=== PATIENT | male | born 1970 | race Caucasian/White ===

== ENCOUNTER 2019-03-22 16:56 | Emergency (ER) | payer MEDICAID ==
[~2019-03-22] VITALS: Ht 185.4 cm; Wt 142.4 kg
[2019-03-22 17:17] VITALS: BP 141/89
--- NOTE | 2019-03-22 17:35 | NUR ---
48 Y/O M C/O COUGH X 1 DAY THAT IS NON-PRODUCTIVE, RUNNY NOSE. PT DENIES N/V, NO FEVER. PT LUNG SOUNDS CLEAR THROUGHOUT. PT POSITIONED FOR COMFORT. OXYGEN ROOM AIR, 97%
[2019-03-22] MEDS ORDERED: predniSONE 20 MG TAB PO ONE (18:00)
[2019-03-22] MEDS ORDERED: ALBUTEROL SULFATE/IPRATROPIU 3 ML SOL IH ONE (18:00)
--- NOTE | 2019-03-22 18:28 | NUR ---
RESPIRATORY AT BEDSIDE ADMINISTERING BREATHING TREATMENT.
--- NOTE | 2019-03-22 18:38 | NUR ---
PT STATED HE FEELS BETTER AFTER BREATHING TREATMENT BY RT, ABLE TO TAKE DEEPER BREATHS W/O DISCOMFORT.
[2019-03-22 18:39] VITALS: BP 125/80
--- NOTE | 2019-03-22 18:40 | NUR ---
Patient discharged with v/s stable. Written and verbal after care instructions given and explained. Patient alert, oriented and verbalized understanding of instructions. Ambulatory with steady gait. All questions addressed prior to discharge. ID band removed. Patient advised to follow up with PMD. Rx of PREDNISONE, PROMETHAZINE given. Patient educated on indication of medication including possible reaction and side effects. Opportunity to ask questions provided and answered.
== END 2019-03-22 18:40 | disposition home or self-care (01) ==
LOC: MED 16:56
DX: J45.909 Unspecified asthma, uncomplicated (principal)
CPT/HCPCS: 94640; 99283; J7512; J7620

== ENCOUNTER 2019-03-24 10:55 | Emergency (ER) | payer MEDICAID ==
[~2019-03-24] VITALS: Ht 180.3 cm; Wt 141.5 kg
[2019-03-24 11:04] VITALS: BP 149/108
--- NOTE | 2019-03-24 11:11 | NUR ---
FLU SWAB COLLECTED
[2019-03-24] MEDS ORDERED: ACETAMINOPHEN EXTRA STRENGTH 500 MG TAB PO ONE (11:15)
--- NOTE | 2019-03-24 11:17 | NUR ---
AMB TO BED 07
--- NOTE | 2019-03-24 11:24 | NUR ---
48 YO MALE CO FEVER THAT WILL NOT GET BETTER WITH MEDS. NO OTHER PEOPLE AT [facility] SICK AT THIS TIME. PY ALSO ADV THAT HE HAS BODY ACHES AND IS UNABLE TO HAVE A BM. HAS NOT HAD A BM SINCE 03/22/2019. PT HAS HX OF HTN AND HIGH CHOLESTEROL. PT TAKING HCTZ AND SIMVASTATIN AT HOME. PT STATES THAT HE HAS A HEADACHE OF 8/10. GAVE TYLENOL 1000MG PER MD.
--- NOTE | 2019-03-24 11:27 | NUR ---
Patient taken to XRAY via wheelchair by tech.
--- NOTE | 2019-03-24 11:35 | NUR ---
PT TAKEN TO RAD
[2019-03-24 11:44] VITALS: BP 149/108
[2019-03-24] MEDS ORDERED: NACL 0.9% 1,000 ML IV ONE ×2 (11:50→12:45)
--- NOTE | 2019-03-24 12:05 | NUR ---
LABS DRAWN AND TAKEN TO THE LAB
[2019-03-24 12:22] LABS: BASOPHILS % (AUTO) 0.2 % (0.0-2.0); EOSINOPHILS % (AUTO) 0.1 % (0.0-4.0); HEMATOCRIT 44.8 % (36-52); HEMOGLOBIN 14.9 g/dL (12.0-18.0); LYMPHOCYTES # (AUTO) 0.7 K/uL (2.0-11.5); LYMPHOCYTES % (AUTO) 12.1 % (20.5-51.1); MEAN CORPUSCULAR HEMOGLOBIN 30 pg (27-31); MEAN CORPUSCULAR HGB CONC 33 g/dL (33-37); MEAN CORPUSCULAR VOLUME 90.8 fL (80-94); MONOCYTES # (AUTO) 0.9 K/uL (0.8-1.0); MONOCYTES % (AUTO) 14.2 % (1.7-9.3); NEUTROPHILS # (AUTO) 4.5 K/uL (1.8-7.7); NEUTROPHILS % (AUTO) 73.4 % (42.2-75.2); PLATELET COUNT (AUTO) 176 K/uL (140-450); RED BLOOD CELL COUNT(AUTO) 4.93 MIL/uL (4.20-6.10); RED CELL DISTRIBUTION WIDTH 13.2 % (11.6-13.7); WHITE BLOOD COUNT (AUTO) 6.1 K/uL (4.8-10.8)
[2019-03-24] MEDS ORDERED: OSELTAMIVIR PHOSPHATE 75 MG CAP PO ONE (12:25)
[2019-03-24 12:33] LABS: ANION GAP 11.4 (8-16); CARBON DIOXIDE 30.3 mmol/L (21-32); CREATININE 1.1 mg/dL (0.7-1.3); POTASSIUM 3.7 mmol/L (3.5-5.1)
[2019-03-24 12:47] LABS: ALBUMIN 3.5 g/dL (3.4-5.0); TOTAL BILIRUBIN 0.6 mg/dL (0.0-1.0)
[2019-03-24] MEDS ORDERED: INSULIN REGULAR, HUMAN 100 UNIT/ML VIAL SUBQ ONE (12:50)
[2019-03-24] MEDS ORDERED: MORPHINE SULFATE 4 MG/ML SYR IVP ONE (13:30)
--- NOTE | 2019-03-24 13:43 | NUR ---
Lactic acid 2.4. communicated with
--- NOTE | 2019-03-24 13:43 | NUR ---
BS AT 1343 IS 226
--- NOTE | 2019-03-24 14:35 | NUR ---
IV removed, catheter intact and site benign. Applied folded 4x4 gauze and tape to stop bleeding.
--- NOTE | 2019-03-24 14:41 | NUR ---
Patient discharged with v/s stable. Written and verbal after care instructions given and explained. Patient alert, oriented and verbalized understanding of instructions. Ambulatory with steady gait. All questions addressed prior to discharge. ID band removed. Patient advised to follow up with PMD. Rx of TAMIFLU given. Patient educated on indication of medication including possible reaction and side effects. Opportunity to ask questions provided and answered. INSTRUCTED TO WAIT IN LOBBY FOR . PT VERBALIZED UNDERSTANDING
== END 2019-03-24 14:41 | disposition home or self-care (01) ==
LOC: MED 10:55
DX: J09.X2 Influenza due to identified novel influenza A virus with other respiratory manifestations (principal); R73.9 Hyperglycemia, unspecified; I10 Essential (primary) hypertension; E78.00 Pure hypercholesterolemia, unspecified; J45.909 Unspecified asthma, uncomplicated; Z86.73 Personal history of transient ischemic attack (TIA), and cerebral infarction without residual deficits; Z88.6 Allergy status to analgesic agent
CPT/HCPCS: 36415; 71046; 80053; 82948; 83605; 85025; 87040; 87804; 96372; 96374; 99284; J1815; J2270; J7030

== ENCOUNTER 2019-04-01 10:16 | Emergency (ER) | payer MEDICAID ==
[~2019-04-01] VITALS: Ht 210.8 cm; Wt 136.6 kg
[2019-04-01 10:46] VITALS: BP 140/85
--- NOTE | 2019-04-01 11:31 | NUR ---
48/M C/O UTI SYMPTOMS X 3 DAYS. STATES DYSURIA, URGENCY, SLOW WEAK STREAM. STATES HEMATURIA 3 DAYS AGO, NONE AT THIS TIME. PT HAS PROVIDED URINE SAMPLE ALREADY. HX- HTN, DM, HLD
--- NOTE | 2019-04-01 11:34 | NUR ---
DR URIBE EVALUATING PT AT BEDSIDE
[2019-04-01 12:15] LABS: BILIRUBIN,URINE NEGATIVE (NEGATIVE); BLOOD, URINE TRACE-L (NEGATIVE); COLOR,URINE YELLOW (YELLOW); LEUKOCYTE ESTERASE ,URINE TRACE (NEGATIVE); NITRITE, URINE NEGATIVE (NEGATIVE); PH,URINE 6.5 (5.0-9.0); UGLUCOSE 3+ (NEGATIVE)
--- NOTE | 2019-04-01 12:29 | NUR ---
ABBY WITH LAB STATED URINE IS CURRENTLY RUNNING ; COLLECTED AT [id number]
[2019-04-01 12:32] LABS: APPEARANCE,URINE SLIGHTLY HAZY (CLEAR)
[2019-04-01 12:45] LABS: URINE AMORPHOUS URATE 1+ /HPF (None Seen); YEAST,URINE Few /HPF (None Seen)
[2019-04-01 12:47] LABS: RBC,URINE 0-5 /HPF (0-5)
--- NOTE | 2019-04-01 13:44 | NUR ---
PT STATES DR URIBE WAS GOING TO COME BACK TO TALK TO HIM ABOUT DIABETES MED. NOTIFIED DR URIBE.
--- NOTE | 2019-04-01 13:47 | NUR ---
DR URIBE SPEAKING WITH PT AT BEDSIDE
--- NOTE | 2019-04-01 13:55 | NUR ---
Patient discharged with v/s stable. Written and verbal after care instructions given and explained. Patient alert, oriented and verbalized understanding of instructions. Ambulatory with steady gait. All questions addressed prior to discharge. ID band removed. Patient advised to follow up with PMD. Rx of CLOTRIMAZOLE CREAM given. Patient educated on indication of medication including possible reaction and side effects. Opportunity to ask questions provided and answered.
[2019-04-01 14:03] VITALS: BP 137/77
== END 2019-04-01 13:55 | disposition home or self-care (01) ==
LOC: MED 10:16
DX: N47.6 Balanoposthitis (principal); E11.9 Type 2 diabetes mellitus without complications
CPT/HCPCS: 81001; 87086; 99283

== ENCOUNTER 2019-05-07 08:31 | Inpatient (IN) | payer MEDICAID ==
[~2019-05-07] VITALS: Ht 195.6 cm; Wt 120.7 kg
[2019-05-07 08:43] VITALS: BP 158/101
--- NOTE | 2019-05-07 09:05 | NUR ---
48 Y/O MALE C/O BLURRED VISION, HEADACHE, CHANGE OF APPETITE, AND HAND TREMORS X 2 DAYS. DENIES N/V/D. STATES INTERMITTENT VISION CHANGES. PER PT HE DOES NOT WANT TO EAT. CURRENTLY TAKING METFORMIN. RR EVEN AND UNLABORED. SITTING UPRIGHT IN BED CALM AND PLEASANT. X 1 SIDE RAIL RAISED. AT BEDSIDE. MEDHX: HTN, DM ALLERGIES: DICLOFENAC
--- NOTE | 2019-05-07 09:42 | NUR ---
DR ANTHONY AT BEDSIDE EXAMINING PT
[2019-05-07] MEDS ORDERED: NACL 0.9% 2,000 ML IV ONE (09:50)
--- NOTE | 2019-05-07 10:10 | NUR ---
20G IV PLACED TO LT AC, LABS DRAWN AT THIS TIME. URINE COLLECTED.
[2019-05-07 10:29] LABS: BASOPHILS # (AUTO) 0.1 K/uL (0.00-0.22); BASOPHILS % (AUTO) 0.7 % (0.0-2.0); EOSINOPHILS # (AUTO) 0.1 K/uL (0-0.4); EOSINOPHILS % (AUTO) 0.7 % (0.0-4.0); HEMATOCRIT 54.6 % (36-52); HEMOGLOBIN 17.6 g/dL (12.0-18.0); LYMPHOCYTES # (AUTO) 1.7 K/uL (2.0-11.5); LYMPHOCYTES % (AUTO) 23.6 % (20.5-51.1); MEAN CORPUSCULAR HEMOGLOBIN 31 pg (27-31); MEAN CORPUSCULAR HGB CONC 32 g/dL (33-37); MEAN CORPUSCULAR VOLUME 96.2 fL (80-94); MONOCYTES # (AUTO) 0.5 K/uL (0.8-1.0); MONOCYTES % (AUTO) 6.5 % (1.7-9.3); NEUTROPHILS # (AUTO) 5.1 K/uL (1.8-7.7); NEUTROPHILS % (AUTO) 68.5 % (42.2-75.2); PLATELET COUNT (AUTO) 162 K/uL (140-450); RED BLOOD CELL COUNT(AUTO) 5.67 MIL/uL (4.20-6.10); RED CELL DISTRIBUTION WIDTH 14.2 % (11.6-13.7)
[2019-05-07 11:08] LABS: ALBUMIN 3.9 g/dL (3.4-5.0); ANION GAP 18.8 (8-16); CARBON DIOXIDE 29.9 mmol/L (21-32); CREATININE 1.5 mg/dL (0.6-1.3); POTASSIUM 3.7 mmol/L (3.5-5.1); TOTAL BILIRUBIN 0.7 mg/dL (0.0-1.0)
[2019-05-07 11:11] LABS: WHITE BLOOD COUNT (AUTO) 7.4 K/uL (4.8-10.8)
[2019-05-07 11:16] LABS: APPEARANCE,URINE CLEAR (CLEAR); BILIRUBIN,URINE NEGATIVE (NEGATIVE); BLOOD, URINE NEGATIVE (NEGATIVE); COLOR,URINE YELLOW (YELLOW); LEUKOCYTE ESTERASE ,URINE NEGATIVE (NEGATIVE); NITRITE, URINE NEGATIVE (NEGATIVE); PH,URINE 5.5 (5.0-9.0); UGLUCOSE 3+ (NEGATIVE)
[2019-05-07] MEDS ORDERED: INSULIN REGULAR, HUMAN 100 UNIT/ML VIAL SUBQ ONE (11:30)
[2019-05-07 11:33] LABS: RBC,URINE 0-5 /HPF (0-5); WBC,URINE 0-5 /HPF (0-5)
--- NOTE | 2019-05-07 11:51 | NUR ---
PT RESTING IN BED IN POSITION OF COMFORT, BED LOW AND LOCKED, SIDERAILS UP. AT BEDSIDE.
[2019-05-07] MEDS ORDERED: NACL 0.45% 1,000 ML IV ONE (12:20)
[2019-05-07] MEDS ORDERED: LOSA25TA43 PO (12:34)
[2019-05-07] MEDS ORDERED: METF500T2 PO (12:34)
[2019-05-07] MEDS ORDERED: SIMV20TA1 PO (12:34)
[2019-05-07] MEDS ORDERED: VITD400 PO (12:34)
[2019-05-07] MEDS ORDERED: ORE25 PO (12:34)
[2019-05-07] MEDS ORDERED: NACL 0.9% 1,000 ML IV SCH (12:37)
--- NOTE | 2019-05-07 12:39 | NUR ---
PT AMBULATED TO RESTROOM AND BACK TO BED 7 WITH STEADY GAIT. BED LOW AND LOCKED, 2 SIDERAILS UP, PT IN POSITION OF COMFORT. WILL CONTINUE TO MONITOR.
[2019-05-07] MEDS ORDERED: ONDANSETRON 4 MG/2 ML VIAL IVP PRN (12:40)
[2019-05-07] MEDS ORDERED: DEXTROSE 50% 50 ML SYR IVP PRN (12:40)
[2019-05-07] MEDS ORDERED: HYDROcodone/APAP 7.5/325 MG 1 TAB PO PRN (12:40)
[2019-05-07] MEDS ORDERED: ACETAMINOPHEN 325 MG TAB PO PRN (12:40)
--- NOTE | 2019-05-07 13:24 | NUR ---
ABG DONE PRESSURE APPLIED AT PUNCTURE SITE NO EVIDENCE OF HEMATOMA
[2019-05-07 13:32] LABS: FREE T4 (FREE THYROXINE) 0.91 ng/dL (0.76-1.46); MAGNESIUM 2.6 mg/dL (1.8-2.4); PHOSPHORUS 6.1 mg/dL (2.5-4.9); THYROID STIMULATING HORMONE 0.39 uIU/mL (0.34-3.74)
--- NOTE | 2019-05-07 13:33 | NUR ---
CALLED DR. PARRISH [phone] TO REVIEW ABG SAMPLE REPORT FOREMENTIONED NOT AVAILABLE IN SURGERY REVIEWED ABG SAMPL REPORT WITH DR. AKILAH GEORGES
[2019-05-07 13:39] LABS: PROTHROMBIN TIME 10.5 secs (10.8-13.4)
--- NOTE | 2019-05-07 14:49 | NUR ---
PT RESTING IN BED IN POSITION OF COMFORT. SIDERAILS UP, BED LOW AND LOCKED. WILL COTINUE TO MONITOR
--- NOTE | 2019-05-07 15:45 | NUR ---
PT BEING TRANSFERRED VIA WHEELCHAIR WITH 2 RN'S TO ROOM 11A FOR ADMISSION
--- NOTE | 2019-05-07 15:45 | NUR ---
PT ADMITTED AT THIS TIME FROM ER, COMING FROM HOME. C/C BLURRED VISION DUE TO UNCONTROLLED DIABETES. PT AAOX4 AMBULATORY, NO DISTRESS NOTED, DENIES PAIN. RESPIRATIONS EVEN AND UNLABORED ON ROOM AIR. IV IN PLACE IN L AC 22G PATENT AND ASYMPTOMATIC INFUSING PER ORDER. SKIN INTACT. INITIAL ASSESSMENT DONE, EDUCATION GIVEN AND PAPERWORK FILLED IN. SAFETY MEASURES IN PLACE. CALL LIGHT WITHIN REACH, SAFETY MEASURES IN PLACE. WILL CONTINUE TO MONITOR.
--- NOTE | 2019-05-07 15:48 | NUR ---
PT IN BED AWAKE WATCHING TV, NO DISTRESS NOTED. SAFETY MEASURES IN PLACE. CALL LIGHT WITHIN REACH, BED IN LOW POSITION. WILL CONTINUE TO MONITOR.
--- NOTE | 2019-05-07 15:53 | NUR ---
Pt report given to BRENT DAVENPORT. Transfer of care at this time . Pt admitted to bed 111A
[2019-05-07] MEDS: BLOOD GLUCOSE MONITORING 1 DEV DEV FS SCH ×2 (17:04→21:09)
[2019-05-07] MEDS: INSULIN LISPRO SLIDING SCALE 100 UNITS/ML VIAL SUBQ PRN ×2 (18:01→21:09)
--- NOTE | 2019-05-07 19:03 | NUR ---
PT ENDORSED TO NIGHT NURSE FOR CONTINUITY OF CARE.
--- NOTE | 2019-05-07 19:04 | NUR ---
REPORT RECEIVED FROM AM NURSE AT BEDSIDE. PT IN STABLE CONDITION. AAOX4. INTRODUCED SELF TO PT. BOARD UPDATED. NO COMPLAINTS OF PAIN. NO SOB. AFEBRILE. PT IS AMBULATORY. IV SITE L AC 20G RUNNING NS@100ML/HR PATENT AND INTACT. SKIN WARM, DRY, AND INTACT WITH NO OPEN WOUNDS. BED LOCKED IN LOW POSITION. CALL DRISCOLL WITHIN REACH. SAFETY PRECAUTION IN PLACE. ALL NEEDS MET AT THIS TIME.
[2019-05-07] MEDS ORDERED: MECLIZINE 25 MG TAB PO PRN (19:40)
[2019-05-07] MEDS ORDERED: NON-FORMULARY ITEM (Metformin HCl* (Glucophage Xr*) 1 TAB) PO SCH (21:00)
[2019-05-07] MEDS: DOCUSATE SODIUM 100 MG GELCAP PO SCH (21:04)
[2019-05-07] MEDS: SIMVASTATIN 20 MG TAB PO SCH (21:04)
--- NOTE | 2019-05-07 21:04 | NUR ---
HEPARIN GIVEN SUBQ. ZOCOR AND DOCUSATE GIVEN PO. BS 326. 8 UNITS OF HUMALOG GIVEN. PT TOLERATED WELL.
[2019-05-07 22:25] LABS: ANION GAP 11.4 (8-16); CARBON DIOXIDE 30.4 mmol/L (21-32); CREATININE 1.1 mg/dL (0.6-1.3); POTASSIUM 3.8 mmol/L (3.5-5.1)
[2019-05-07] MEDS ORDERED: metFORMIN 500 MG TAB PO SCH (23:15)
--- NOTE | 2019-05-07 23:30 | NUR ---
PHARMACY CALLED FOR VERIFICATION OF MEDICATION. MD MADE AWARE. MD WILL MAKE CHANGES.
--- NOTE | 2019-05-07 23:40 | NUR ---
METFORMIN GIVEN PO. PT TOLERATED WELL.
[2019-05-08] VITALS: BP 143/77
[2019-05-08 00:03] LABS: BARBITURATE, URINE NEGATIVE ng/ml (NEG <=200); BENZODIAZEPINE, URINE NEGATIVE ng/mL (NEG <=200); CANNABINOID, URINE NEGATIVE ng/mL (NEG <=50); COCAINE, URINE NEGATIVE ng/mL (NEG <=300); OPIATE, URINE NEGATIVE ng/mL (NEG <=2000); PHENCYCLIDINE SCREEN,URINE NEGATIVE ng/mL (NEG <=25)
[2019-05-08] MEDS ORDERED: NACL 0.9% 1,000 ML IV SCH (00:37)
--- NOTE | 2019-05-08 01:30 | NUR ---
PT SLEEPING COMFORTABLY BUT AROUSABLE. NO S/S OF DISTRESS NOTED. WILL CONTINUE TO MONITOR.
--- NOTE | 2019-05-08 03:10 | NUR ---
PT SLEEPING COMFORTABLY BUT AROUSABLE. NO S/S OF DISTRESS NOTED. NO COMPLAINTS OF PAIN. NO SOB. AFEBRILE. WILL CONTINUE TO MONITOR.
--- NOTE | 2019-05-08 04:45 | NUR ---
PT SLEEPING COMFORTABLY BUT AROUSABLE. RESPIRATIONS EVEN, UNLABORED, AND WNL. WILL CONTINUE TO MONITOR.
[2019-05-08] MEDS: BLOOD GLUCOSE MONITORING 1 DEV DEV FS SCH ×4 (05:57→21:51)
[2019-05-08] MEDS: NACL 0.45% 1,000 ML IV SCH ×2 (06:15→19:45)
[2019-05-08] MEDS: INSULIN LISPRO SLIDING SCALE 100 UNITS/ML VIAL SUBQ PRN ×4 (06:20→21:50)
--- NOTE | 2019-05-08 06:20 | NUR ---
BS 300. 6 UNITS OF HUMALOG GIVEN. PT TOLERATED WELL.
--- NOTE | 2019-05-08 06:45 | NUR ---
PT AWAKE AND ALERT. PT IN STABLE CONDITION.
[2019-05-08 07:18] LABS: ANION GAP 12.6 (8-16); CARBON DIOXIDE 31.8 mmol/L (21-32); POTASSIUM 4.4 mmol/L (3.5-5.1)
[2019-05-08 07:20] LABS: BASOPHILS # (AUTO) 0.1 K/uL (0.00-0.22); EOSINOPHILS # (AUTO) 0.2 K/uL (0-0.4); EOSINOPHILS % (AUTO) 3.6 % (0.0-4.0); HEMATOCRIT 48.1 % (36-52); HEMOGLOBIN 15.7 g/dL (12.0-18.0); LYMPHOCYTES # (AUTO) 1.9 K/uL (2.0-11.5); LYMPHOCYTES % (AUTO) 36.9 % (20.5-51.1); MEAN CORPUSCULAR HEMOGLOBIN 31 pg (27-31); MEAN CORPUSCULAR HGB CONC 33 g/dL (33-37); MEAN CORPUSCULAR VOLUME 95.1 fL (80-94); MONOCYTES # (AUTO) 0.3 K/uL (0.8-1.0); MONOCYTES % (AUTO) 6.9 % (1.7-9.3); NEUTROPHILS # (AUTO) 2.6 K/uL (1.8-7.7); NEUTROPHILS % (AUTO) 51.6 % (42.2-75.2); PLATELET COUNT (AUTO) 124 K/uL (140-450); RED BLOOD CELL COUNT(AUTO) 5.06 MIL/uL (4.20-6.10); RED CELL DISTRIBUTION WIDTH 14.1 % (11.6-13.7)
--- NOTE | 2019-05-08 07:30 | NUR ---
Received report from pm nurse Delacruz. Pt sitting up in bed, awake, verbally responsive, no signs of distress. Left AC IV intact & asymptomatic. Call light within reach.
[2019-05-08 07:40] LABS: CHOL/HDL RATIO 6.8 (1-4.5); MAGNESIUM 2.3 mg/dL (1.8-2.4); PHOSPHORUS 3.9 mg/dL (2.5-4.9)
[2019-05-08 08:00] VITALS: BP_SYST 125; BP_SYST 126; BP_SYST 128; BP_DIAS 62; BP_DIAS 68; BP_DIAS 75
[2019-05-08] MEDS ORDERED: metFORMIN 500 MG TAB PO SCH (08:00)
--- NOTE | 2019-05-08 08:29 | NUR ---
PATIENT HAS BEEN SCREENED AND CATEGORIZED HIGH NUTRITION RISK. PATIENT WILL BE SEEN WITHIN 1-2 DAYS OF ADMISSION. 05/08/19-05/09/[address]
[2019-05-08] MEDS: DOCUSATE SODIUM 100 MG GELCAP PO SCH ×2 (08:54→21:25)
[2019-05-08] MEDS: LOSARTAN 25 MG TAB PO SCH (08:54)
[2019-05-08] MEDS ORDERED: INSULIN NPH HUM/REG INSULIN HM 100 UNIT/ML 10 ML VIAL SUBQ SCH (09:00)
--- NOTE | 2019-05-08 09:30 | NUR ---
Pt requested to go to [facility] to get phone equipment washer from his car. Held IVF and disconnected from IV line. Vandana (security) notified and escorted pt to [facility]. Pt ambulated with steady gait and came back to room 111A and resumed IVF 1/2NS @ 50ml/h.
[2019-05-08 15:33] LABS: ANION GAP 12.5 (8-16); CARBON DIOXIDE 29.4 mmol/L (21-32); POTASSIUM 3.9 mmol/L (3.5-5.1)
[2019-05-08 16:00] VITALS: BP_SYST 125; BP_DIAS 68; BP_DIAS 81
--- NOTE | 2019-05-08 16:01 | NUR ---
05/08/19 RD INITIAL ASSESSMENT COMPLETED PLEASE REFER TO NUTRITION ASSESSMENT UNDER CARE ACTIVITY FOR ESTIMATED NUTRITIONAL NEEDS. 1. [facility]OMM[facility]IAC, [facility] DIET. 2. DM NUTRITION EDUCATION WAS PROVIDED 3. RD TO FOLLOW-UP 5-7 DAYS, LOW RISK [address]IJ[address], RD
--- NOTE | 2019-05-08 19:22 | NUR ---
RECIEVED PT. AAOX4 , NID , IV SITE INTACT AND PATENT . POC DISCUSSED AND VERBALIZE UNDERSTANDING . SAFETY MEASURE IN PLACE . CALL LIGHT WITHIN REACH . WILL CONT. TO MONITOR.
[2019-05-08] MEDS: INSULIN NPH HUM/REG INSULIN HM 100 UNIT/ML 10 ML VIAL SUBQ SCH (21:21)
[2019-05-08] MEDS: SIMVASTATIN 20 MG TAB PO SCH (21:25)
--- NOTE | 2019-05-08 22:00 | NUR ---
HOLD HEPARIN ORDERED BY ONELIA - PLT 124.
[2019-05-08] MEDS ORDERED: INSULIN LANTUS 100 UNITS/ML 10 ML VIAL SUBQ ONE (22:45)
[2019-05-08] MEDS ORDERED: INSULIN LANTUS 100 UNITS/ML 10 ML VIAL SUBQ SCH (23:30)
--- NOTE | 2019-05-08 23:51 | NUR ---
LANTUS 10 "U" SQ GIVEN STAT ORDERED - HGT 257 - MIDNIGHT SNACK PROVIDED. WILL CONT. TO MONITOR.
[2019-05-09] VITALS: BP 128/70
--- NOTE | 2019-05-09 02:00 | NUR ---
MADE ROUNDS , NO COMPLAIN MADE , VODED FREELY. WILL CONT. TO MONITOR
--- NOTE | 2019-05-09 03:46 | NUR ---
MADE ROUNDS , NOT IN ACUTE DISTRESS , WILL CONT. TO MONITOR.
--- NOTE | 2019-05-09 05:44 | NUR ---
MADE ROUNDS . SITTING ON THE BED , NO COMPLAIN MADE .WILL CONT. TO MONITOR.
[2019-05-09] MEDS: BLOOD GLUCOSE MONITORING 1 DEV DEV FS SCH ×4 (05:49→21:00)
[2019-05-09] MEDS: INSULIN LISPRO SLIDING SCALE 100 UNITS/ML VIAL SUBQ PRN ×4 (05:51→21:09)
[2019-05-09] MEDS ORDERED: MAGNESIUM CITRATE 300 ML BTL PO ONE (06:40)
[2019-05-09 07:07] LABS: BASOPHILS % (AUTO) 0.4 % (0.0-2.0); EOSINOPHILS # (AUTO) 0.1 K/uL (0-0.4); EOSINOPHILS % (AUTO) 4.4 % (0.0-4.0); HEMATOCRIT 46.3 % (36-52); HEMOGLOBIN 15.1 g/dL (12.0-18.0); LYMPHOCYTES # (AUTO) 1.7 K/uL (2.0-11.5); LYMPHOCYTES % (AUTO) 51.5 % (20.5-51.1); MEAN CORPUSCULAR HEMOGLOBIN 30 pg (27-31); MEAN CORPUSCULAR HGB CONC 33 g/dL (33-37); MEAN CORPUSCULAR VOLUME 93.4 fL (80-94); MONOCYTES # (AUTO) 0.2 K/uL (0.8-1.0); MONOCYTES % (AUTO) 5.6 % (1.7-9.3); NEUTROPHILS # (AUTO) 1.3 K/uL (1.8-7.7); NEUTROPHILS % (AUTO) 38.1 % (42.2-75.2); PLATELET COUNT (AUTO) 110 K/uL (140-450); RED BLOOD CELL COUNT(AUTO) 4.95 MIL/uL (4.20-6.10); RED CELL DISTRIBUTION WIDTH 13.5 % (11.6-13.7); WHITE BLOOD COUNT (AUTO) 3.4 K/uL (4.8-10.8)
--- NOTE | 2019-05-09 07:10 | NUR ---
RECEIVED BEDSIDE REPORT FROM ISSAC MYERS. PATIENT IN BED, AWAKE, ALERT AND ORIENTED X4. DENIES ANY PAIN OR DISCOMFORT. IV INTACT AND PATENT TO LAC. PLANS OF CARE DISCUSSED. CALL LIGHT WITHIN REACH. SAFETY MEASURES IN PLACE.
[2019-05-09 07:32] LABS: ANION GAP 12.4 (8-16); CARBON DIOXIDE 29.4 mmol/L (21-32); CREATININE 0.9 mg/dL (0.6-1.3); POTASSIUM 3.8 mmol/L (3.5-5.1)
[2019-05-09 07:34] LABS: MAGNESIUM 2.1 mg/dL (1.8-2.4); PHOSPHORUS 4.1 mg/dL (2.5-4.9)
[2019-05-09 08:00] VITALS: BP 146/89
[2019-05-09] MEDS ORDERED: INSULIN LANTUS 100 UNITS/ML 10 ML VIAL SUBQ SCH (09:00)
[2019-05-09] MEDS: INSULIN NPH HUM/REG INSULIN HM 100 UNIT/ML 10 ML VIAL SUBQ SCH ×2 (09:09→21:12)
[2019-05-09] MEDS: DOCUSATE SODIUM 100 MG GELCAP PO SCH ×2 (09:10→20:57)
[2019-05-09] MEDS: LOSARTAN 25 MG TAB PO SCH (09:10)
[2019-05-09] MEDS ORDERED: MAGNESIUM CITRATE 300 ML BTL PO SCH (09:15)
--- NOTE | 2019-05-09 09:15 | NUR ---
PT STATED HE HAS NOT HAD BOWEL MOVEMENT FOR 3 DAYS. MAGNESIUM CITRATE GIVEN ORDERED. PATIENT REMAINS STABLE. NO DISTRESS NOTED.
--- NOTE | 2019-05-09 11:30 | NUR ---
PATIENT REMAINS STABLE. AAOX4. ABLE TO MAKE NEEDS KNOWN. PATIENT SITTING ON THE SIDE OF THE BED, AT BEDSIDE. NO DISTRESS NOTED.
--- NOTE | 2019-05-09 13:00 | NUR ---
PATIENT ABLE TO AMBULATE WITH STEADY GAIT. PATIENT REQUESTED TO SHOWER. PATIENT ABLE TO SHOWER INDEPENDENTLY. WILL MONITOR.
--- NOTE | 2019-05-09 15:30 | NUR ---
PATIENT AMBULATED TO THE RESTROOM. NO DISTRESS NOTED.
[2019-05-09 16:00] VITALS: BP 113/51
--- NOTE | 2019-05-09 17:45 | NUR ---
PATIENT SITTING ON THE SIDE OF THE BED EATING DINNER. NO S/S OF DISTRESS NOTED. PT AAOX4. ABLE TO MAKE NEEDS KNOWN. CALL LIGHT WITHIN REACH.
[2019-05-09] MEDS ORDERED: LANC-947 TP (18:01)
[2019-05-09] MEDS ORDERED: HUMSLIDE SUBQ (18:01)
[2019-05-09] MEDS ORDERED: ASPI-1173 PO (18:01)
[2019-05-09] MEDS ORDERED: GLUC-805 FS (18:01)
[2019-05-09] MEDS ORDERED: INSU-800 MC (18:01)
[2019-05-09] MEDS ORDERED: DOCU-299 PO (18:01)
[2019-05-09] MEDS: NACL 0.45% 1,000 ML IV SCH (18:35)
--- NOTE | 2019-05-09 18:47 | NUR ---
PATIENT IN STABLE CONDITION. WILL ENDORSE TO NIGHT NURSE FOR CONTINUITY OF CARE.
--- NOTE | 2019-05-09 19:20 | NUR ---
RECEIVED PT IN STABLE CONDITION FROM AM NURSE. MED SURG PT. WITH NO C/O ANY PAIN NOTED. IVF INFUSING WELL ON THE LT AC G#20. CLEAR AND PATENT. PLAN OF CARE DISCUSSED AND VERBALIZED UNDERSTANDING. FREQ ROUNDS NEEDED. BED ON LOW POSITION. SIDE RAILS UP X2, CALL LIGHT WITHIN EASY REACH. WILL CONTINUE TO MONITOR.
[2019-05-09] MEDS: SIMVASTATIN 20 MG TAB PO SCH (20:58)
--- NOTE | 2019-05-09 21:09 | NUR ---
BLOOD SUGAR WAS CHECKED RESULT 256. INSULIN COVERAGE GIVEN SUBQ. PROVIDE SOME MSNACK. WILL CONTINUE TO MONITOR.
[2019-05-10] VITALS: BP 119/73
--- NOTE | 2019-05-10 | NUR ---
PT AWAKE. NO C/O ANY DISCOMFORT NOTED. WILL CONTINUE TO MONITOR.
--- NOTE | 2019-05-10 02:00 | NUR ---
MADE ROUNDS. SLEEPING WELL. NO S/S OF ANY DISCOMFORT NOTED.
--- NOTE | 2019-05-10 05:00 | NUR ---
SLEEPING. NO S/S OF ANY DISCOMFORT NOTED
[2019-05-10] MEDS: BLOOD GLUCOSE MONITORING 1 DEV DEV FS SCH ×2 (05:55→12:13)
[2019-05-10] MEDS: INSULIN LISPRO SLIDING SCALE 100 UNITS/ML VIAL SUBQ PRN ×2 (05:59→12:22)
--- NOTE | 2019-05-10 06:15 | NUR ---
IV ACCESS ON THE LT AC G20 LEAKING. DISCONTINUED. STARTED A NEW IV SITE ON LT WRIST G#22.
[2019-05-10 06:44] LABS: BASOPHILS % (AUTO) 0.6 % (0.0-2.0); EOSINOPHILS # (AUTO) 0.1 K/uL (0-0.4); EOSINOPHILS % (AUTO) 3.5 % (0.0-4.0); HEMATOCRIT 44.5 % (36-52); HEMOGLOBIN 14.9 g/dL (12.0-18.0); LYMPHOCYTES # (AUTO) 1.6 K/uL (2.0-11.5); MEAN CORPUSCULAR HEMOGLOBIN 31 pg (27-31); MEAN CORPUSCULAR HGB CONC 34 g/dL (33-37); MEAN CORPUSCULAR VOLUME 91.7 fL (80-94); MONOCYTES # (AUTO) 0.2 K/uL (0.8-1.0); NEUTROPHILS # (AUTO) 0.7 K/uL (1.8-7.7); NEUTROPHILS % (AUTO) 26.9 % (42.2-75.2); PLATELET COUNT (AUTO) 99 K/uL (140-450); RED BLOOD CELL COUNT(AUTO) 4.85 MIL/uL (4.20-6.10); RED CELL DISTRIBUTION WIDTH 13.3 % (11.6-13.7); WHITE BLOOD COUNT (AUTO) 2.6 K/uL (4.8-10.8)
[2019-05-10 06:56] LABS: PHOSPHORUS 3.5 mg/dL (2.5-4.9)
--- NOTE | 2019-05-10 07:05 | NUR ---
RECEIVED REPORT FROM NIGHT NURSE. PT IN STABLE CONDITION, SITTING ON THE BED, NO DISTRESS NOTED, DENIES PAIN. IV IN PLACE PATENT AND ASYMPTOMATIC IN L WRIST 22G INFUSING PER ORDER. RESPIRATIONS EVEN AND UNLABORED ON ROOM AIR. SKIN INTACT, AMBULATORY. SAFETY MEASURES IN PLACE, CALL LIGHT WITHIN REACH, BED IN LOW POSITION. WILL CONTINUE TO MONITOR.
[2019-05-10 07:10] LABS: ANION GAP 11.3 (8-16); CARBON DIOXIDE 28.4 mmol/L (21-32); CREATININE 0.7 mg/dL (0.6-1.3); POTASSIUM 3.7 mmol/L (3.5-5.1)
--- NOTE | 2019-05-10 07:10 | NUR ---
ENDORSED PT IN STABLE CONDITION TO AM NURSE.
[2019-05-10] MEDS ORDERED: metFORMIN 500 MG TAB PO SCH (08:00)
[2019-05-10] MEDS ORDERED: INSULIN LANTUS 100 UNITS/ML 10 ML VIAL SUBQ SCH (09:00)
[2019-05-10] MEDS ORDERED: ECOTRIN 81 MG TABEC PO SCH (09:00)
[2019-05-10] MEDS: LOSARTAN 25 MG TAB PO SCH (09:03)
[2019-05-10] MEDS: DOCUSATE SODIUM 100 MG GELCAP PO SCH (09:03)
[2019-05-10] MEDS ORDERED: LANTUS SUBQ (09:06)
[2019-05-10] MEDS: INSULIN NPH HUM/REG INSULIN HM 100 UNIT/ML 10 ML VIAL SUBQ SCH (09:06)
--- NOTE | 2019-05-10 09:12 | NUR ---
PT SITTING IN BED, AT THE BEDSIDE. MEDICATIONS ADMINISTERED PER ORDER. PT TOLERATED WELL, NO DISTRESS NOTED. PT STATES HIS VISION HAS NOT IMPROVED. SAFETY MEASURES IN PLACE, CALL LIGHT WITHIN REACH, WILL CONTINUE TO MONITOR.
[2019-05-10] MEDS ORDERED: [UNRECOGNIZED DRUG - CODE] PO (10:33)
[2019-05-10] MEDS ORDERED: LISI-420 PO (10:33)
[2019-05-10] MEDS ORDERED: BLOO1EAC40 MC (10:52)
--- NOTE | 2019-05-10 11:48 | NUR ---
BLOOD GLUCOSE CHECKED AT THIS TIME, WILL GIVE COVERAGE NEEDED PER SLIDING SCALE. PT IN NO DISTRESS. WILL CONTINUE TO MONITOR.
[2019-05-10 12:35] VITALS: BP 112/81
[2019-05-10 13:23] VITALS: BP 112/81
--- NOTE | 2019-05-10 14:00 | NUR ---
PT TO BE DISCHARGED HOME AT THIS TIME. DISCHARGE, MEDICATION AND FOLLOWUP EDUCATION GIVEN TO PT AND , PT VERBALIZED UNDERSTANDING. DISCHARGE PAPERWORK SIGNED BY PT. DEMO FOR SUBQ INSULIN INJECTIONS GIVEN, PT DEMONSTRATED DEMO. FLU VACCINE UP TO DATE AND PNA VACCINE REFUSED. IV SITE REMOVED WITH MINIMAL BLOOD LOSS AND LUMEN INTACT. ID BANDS REMOVED. BELONGINGS VERIFIED AND RETURNED TO PT. PT IN STABLE CONDITION UPON DISCHARGE. PT ESCORTED ON FOOT ACCOMPANIED BY AND LEFT IN PRIVATE VEHICLE.
[2019-05-12] MEDS ORDERED: ERGOCALCIFEROL 50,000 IU SGL PO SCH (09:00)
== END 2019-05-10 14:25 | disposition home or self-care (01) | DRG 469 ==
LOC: MED 08:31 → MTU 12:49
PROVIDERS: ADMIT General Practice; ATTEND General Practice
DX: N17.0 Acute kidney failure with tubular necrosis (principal); E11.00 Type 2 diabetes mellitus with hyperosmolarity without nonketotic hyperglycemic-hyperosmolar coma (NKHHC); E11.40 Type 2 diabetes mellitus with diabetic neuropathy, unspecified; D69.6 Thrombocytopenia, unspecified; G60.8 Other hereditary and idiopathic neuropathies; E87.1 Hypo-osmolality and hyponatremia; E11.319 Type 2 diabetes mellitus with unspecified diabetic retinopathy without macular edema; E86.0 Dehydration; Z88.8 Allergy status to other drugs, medicaments and biological substances; Z86.73 Personal history of transient ischemic attack (TIA), and cerebral infarction without residual deficits; I10 Essential (primary) hypertension; E78.5 Hyperlipidemia, unspecified; G83.0 Diplegia of upper limbs; E66.9 Obesity, unspecified; Z68.31 Body mass index [BMI] 31.0-31.9, adult; Z71.6 Tobacco abuse counseling; Z83.3 Family history of diabetes mellitus
CPT/HCPCS: 36415; 36600; 70450; 71045; 80048; 80053; 80305; 81001; 82150; 82803; 82948; 83036; 83605; 83690; 83735; 83880; 84100; 84439; 84443; 84484; 85025; 85610; 85730; 87081; 93005; 93880; 93925; 93970; 96360; 96361; 96372; 99285; J1644; J1815; J7030; Q0092

== ENCOUNTER 2019-05-19 13:35 | Emergency (ER) | payer MEDICAID ==
[~2019-05-19] VITALS: Ht 185.4 cm; Wt 127.6 kg
[~2019-05-19 13:35] MED LIST: BLOO1EAC40 MC; DOCU-299 PO; GLUC-805 FS; HUMSLIDE SUBQ; INSU-800 MC; LANC-947 TP; LANTUS SUBQ; LISI-420 PO; METF500T2 PO; VITD400 PO; [UNRECOGNIZED DRUG - CODE] PO
[2019-05-19 13:45] VITALS: BP 154/81
--- NOTE | 2019-05-19 14:00 | NUR ---
DR NG AT BEDSIDE EVALUATING PT.
[2019-05-19] MEDS ORDERED: NACL 0.9% 500 ML IV ONE (14:10)
--- NOTE | 2019-05-19 14:15 | NUR ---
C/O RIGHT RIBS PAIN X 4 DAYS. DENIES TRAUMA.PT AWAKE , ALERT, AMBULATORY WITH STEADY GAIT. SCE, CBS BLF, ROUND SOFT NABS NONTENDER. MED HX: DM, HTN, HIGH CHOLESTEROL
--- NOTE | 2019-05-19 14:16 | NUR ---
PT TAKEN TO X-RAY AT THIS TIME
--- NOTE | 2019-05-19 14:16 | NUR ---
pt to xray via wheelchair , awake , alert.
--- NOTE | 2019-05-19 14:30 | NUR ---
PT BACK FROM [facility] VIA WHEELCHAIR.
[2019-05-19 14:49] LABS: BASOPHILS # (AUTO) 0.1 K/uL (0.00-0.22); BASOPHILS % (AUTO) 0.8 % (0.0-2.0); EOSINOPHILS # (AUTO) 0.2 K/uL (0-0.4); EOSINOPHILS % (AUTO) 2.7 % (0.0-4.0); HEMATOCRIT 45.3 % (36-52); HEMOGLOBIN 15.3 g/dL (12.0-18.0); LYMPHOCYTES # (AUTO) 1.8 K/uL (2.0-11.5); LYMPHOCYTES % (AUTO) 28.3 % (20.5-51.1); MEAN CORPUSCULAR HEMOGLOBIN 31 pg (27-31); MEAN CORPUSCULAR HGB CONC 34 g/dL (33-37); MEAN CORPUSCULAR VOLUME 91.2 fL (80-94); MONOCYTES # (AUTO) 0.7 K/uL (0.8-1.0); MONOCYTES % (AUTO) 10.9 % (1.7-9.3); NEUTROPHILS # (AUTO) 3.7 K/uL (1.8-7.7); NEUTROPHILS % (AUTO) 57.3 % (42.2-75.2); PLATELET COUNT (AUTO) 228 K/uL (140-450); RED BLOOD CELL COUNT(AUTO) 4.96 MIL/uL (4.20-6.10); RED CELL DISTRIBUTION WIDTH 13.5 % (11.6-13.7); WHITE BLOOD COUNT (AUTO) 6.5 K/uL (4.8-10.8)
[2019-05-19 15:02] LABS: ALBUMIN 3.4 g/dL (3.4-5.0); ANION GAP 10.5 (8-16); CARBON DIOXIDE 30.4 mmol/L (21-32); CREATININE 0.8 mg/dL (0.6-1.3); POTASSIUM 4.9 mmol/L (3.5-5.1); TOTAL BILIRUBIN 0.4 mg/dL (0.0-1.0)
--- NOTE | 2019-05-19 15:04 | NUR ---
PT COMFORTABLE IN BED AWAKE , ALERT. SIDE RAILS UP X 2 AND LOCK.
--- NOTE | 2019-05-19 15:23 | NUR ---
DR NG AT BEDSIDE REEVALUATING PT.
[2019-05-19 15:30] VITALS: BP 142/84
--- NOTE | 2019-05-19 15:30 | NUR ---
Patient discharged with v/s stable. Written and verbal after care instructions given and explained. Patient alert, oriented and verbalized understanding of instructions. Ambulatory with to car. All questions addressed prior to discharge. ID band removed. Patient advised to follow up with PMD. Rx of TRAMADOL HYDROCHLORIDE given. Patient educated on indication of medication including possible reaction and side effects. Opportunity to ask questions provided and answered. PT GIVEN COPY OF XRAY RESULTS
== END 2019-05-19 15:30 | disposition home or self-care (01) ==
LOC: MED 13:35
DX: R07.81 Pleurodynia (principal); R00.2 Palpitations; I10 Essential (primary) hypertension; J45.909 Unspecified asthma, uncomplicated; E11.9 Type 2 diabetes mellitus without complications; E78.00 Pure hypercholesterolemia, unspecified; Z88.6 Allergy status to analgesic agent; Z79.899 Other long term (current) drug therapy
CPT/HCPCS: 36415; 71101; 80053; 82948; 84484; 85025; 93005; 99285; J7030

== ENCOUNTER 2019-11-07 09:40 | Day surgery (SDC) | payer OTHER, SELFPAY ==
[~2019-11-07] VITALS: Ht 185.4 cm; Wt 140.6 kg
[~2019-11-07 09:40] MED LIST changes: +[UNRECOGNIZED DRUG - CODE] PO; -[UNRECOGNIZED DRUG - CODE] PO
[2019-11-07] MEDS ORDERED: fentaNYL citrate 0.05 MG/ML VIAL ONE (11:11)
[2019-11-07] MEDS ORDERED: LIDOCAINE 2% 100 MG/5 ML UJET TP ONE ×2 (11:11→16:05)
[2019-11-07] MEDS ORDERED: MIDAZOLAM 2 MG/2 ML VIAL ONE (11:11)
[2019-11-07] MEDS ORDERED: fentaNYL citrate 0.05 MG/ML VIAL IVP ONE (16:05)
[2019-11-07] MEDS ORDERED: MIDAZOLAM 2 MG/2 ML VIAL IVP ONE (16:05)
== END 2019-11-07 12:30 | disposition home or self-care (01) ==
LOC: MDS 09:40 → MFCC 09:45 → MDS 12:30
PROVIDERS: ATTEND Internal Medicine Gastroenterology
DX: K62.5 Hemorrhage of anus and rectum (principal); K59.00 Constipation, unspecified; R14.1 Gas pain; I10 Essential (primary) hypertension; E11.9 Type 2 diabetes mellitus without complications; E78.5 Hyperlipidemia, unspecified; Z20.828 Contact with and (suspected) exposure to other viral communicable diseases; Z79.899 Other long term (current) drug therapy
CPT/HCPCS: 45378; J2250; J3010; U0003

== ENCOUNTER 2019-12-29 16:21 | Emergency (ER) | payer OTHER, SELFPAY ==
[~2019-12-29] VITALS: Ht 185.4 cm; Wt 129.3 kg
[2019-12-29 16:35] VITALS: BP 133/81
--- NOTE | 2019-12-29 16:45 | NUR ---
PT AMB TO BED 2
--- NOTE | 2019-12-29 17:22 | NUR ---
49 YEAR OLD MALE COMPLAINS OF COUGH X 2 DAYS, AND ABDOMINAL PAIN, NAUSEA, AND VOMITTING SINCE LAST NIGHT. PT DENIES DIARRHEA. PT DENIES BLOOD IN EMESIS OR DEFECATION. PT AOX4, BREATHING EVEN AND UNLABORED, SKIN WARM AND DRY. BED IN LOWEST POSITION, LOCKED, BED RAIL UPX1. PMH - DM2, HTN, HIGH CHOLESTEROL ALLERGIES - DICLOFENAC
[2019-12-29 18:06] LABS: BASOPHILS % (AUTO) 0.2 % (0.0-2.0); EOSINOPHILS # (AUTO) 0.1 K/uL (0-0.4); EOSINOPHILS % (AUTO) 1.3 % (0.0-4.0); HEMATOCRIT 45.5 % (36-52); HEMOGLOBIN 15.4 g/dL (12.0-18.0); LYMPHOCYTES # (AUTO) 0.8 K/uL (2.0-11.5); LYMPHOCYTES % (AUTO) 9.6 % (20.5-51.1); MEAN CORPUSCULAR HEMOGLOBIN 31 pg (27-31); MEAN CORPUSCULAR HGB CONC 34 g/dL (33-37); MEAN CORPUSCULAR VOLUME 91.9 fL (80-94); MONOCYTES # (AUTO) 0.4 K/uL (0.8-1.0); MONOCYTES % (AUTO) 4.9 % (1.7-9.3); NEUTROPHILS # (AUTO) 6.9 K/uL (1.8-7.7); PLATELET COUNT (AUTO) 187 K/uL (140-450); RED BLOOD CELL COUNT(AUTO) 4.95 MIL/uL (4.20-6.10); RED CELL DISTRIBUTION WIDTH 13.6 % (11.6-13.7); WHITE BLOOD COUNT (AUTO) 8.2 K/uL (4.8-10.8)
--- NOTE | 2019-12-29 18:17 | NUR ---
PT ALERT AND AWAKE, BREATHING EVEN AND UNLABORED.
[2019-12-29 18:19] LABS: ALBUMIN 3.8 g/dL (3.4-5.0); ANION GAP 15.2 (8-16); CARBON DIOXIDE 27.2 mmol/L (21-32); CREATININE 1.1 mg/dL (0.6-1.3); POTASSIUM 3.4 mmol/L (3.5-5.1); TOTAL BILIRUBIN 0.7 mg/dL (0.0-1.0)
[2019-12-29 18:37] LABS: APPEARANCE,URINE CLEAR (CLEAR); BILIRUBIN,URINE NEGATIVE (NEGATIVE); BLOOD, URINE TRACE-I (NEGATIVE); COLOR,URINE DARK YELLOW (YELLOW); LEUKOCYTE ESTERASE ,URINE NEGATIVE (NEGATIVE); NITRITE, URINE NEGATIVE (NEGATIVE); UGLUCOSE NEGATIVE (NEGATIVE)
[2019-12-29 18:56] LABS: WBC,URINE 0-5 /HPF (0-5)
[2019-12-29 19:05] VITALS: BP 119/79
--- NOTE | 2019-12-29 19:05 | NUR ---
Patient discharged with v/s stable. Written and verbal after care instructions about abdominal pain, nausea, and vomitting given and explained. Patient alert, oriented and verbalized understanding of instructions. Ambulatory with steady gait. All questions addressed prior to discharge. ID band removed. Patient advised to follow up with PMD. Rx of motrin and zofran given. Patient educated on indication of medication including possible reaction and side effects. Opportunity to ask questions provided and answered.
== END 2019-12-29 19:05 | disposition home or self-care (01) ==
LOC: MED 16:21
DX: R10.31 Right lower quadrant pain (principal); R11.2 Nausea with vomiting, unspecified; E11.9 Type 2 diabetes mellitus without complications; I10 Essential (primary) hypertension; I63.9 Cerebral infarction, unspecified; J45.909 Unspecified asthma, uncomplicated; Z88.6 Allergy status to analgesic agent; Z79.899 Other long term (current) drug therapy
CPT/HCPCS: 36415; 80053; 81001; 83690; 85025; 99284

== ENCOUNTER 2020-04-10 16:26 | Emergency (ER) | payer OTHER, SELFPAY ==
[~2020-04-10] VITALS: Ht 185.4 cm; Wt 128.8 kg
[~2020-04-10 16:26] MED LIST changes: -LISI-420 PO; +LISI-487 PO
[2020-04-10 16:27] VITALS: BP 145/100
--- NOTE | 2020-04-10 16:43 | NUR ---
PT AMBULATED TO BED 5.
--- NOTE | 2020-04-10 16:45 | NUR ---
49 YO M BIB SELF FOR C/C OF ITCHINESS, RASH, AND SWELLING TO LIPS X2 DAYS AFTER EATING SHRIMP. AIRWAY IS INTACT. PTS RASH IS ON TORSO AND BILATERAL LEGS, PT HAS AN OPEN SORE ON R BURLESON FROM ITCHING. PT HAS APPLIED UNKNOWN OINTMENT, LOTION, AND PO TYLENOL WITHOUT RELIEF OF SYMPTOMS. BED LOCKED AND IN LOWEST POSITION. SIDE RAILS X1. MED HX: DM2, HTN, HYPERLIPIDEMIA
[2020-04-10] MEDS ORDERED: predniSONE 20 MG TAB PO ONE (17:25)
[2020-04-10] MEDS ORDERED: FAMOTIDINE 20 MG TAB PO ONE (17:25)
[2020-04-10 18:22] VITALS: BP 154/80
--- NOTE | 2020-04-10 18:22 | NUR ---
Patient discharged with v/s stable. Written and verbal after care instructions given and explained. Patient alert, oriented and verbalized understanding of instructions. Ambulatory with steady gait. All questions addressed prior to discharge. ID band removed. Patient advised to follow up with PMD. Rx of BENADRYL, LORATADINE, CORTIZONE, KEFLEX given. Patient educated on indication of medication including possible reaction and side effects. Opportunity to ask questions provided and answered.
== END 2020-04-10 18:22 | disposition home or self-care (01) ==
LOC: MED 16:26
DX: R21 Rash and other nonspecific skin eruption (principal); L03.115 Cellulitis of right lower limb; L29.9 Pruritus, unspecified; J45.909 Unspecified asthma, uncomplicated; E11.9 Type 2 diabetes mellitus without complications; I10 Essential (primary) hypertension; Z86.73 Personal history of transient ischemic attack (TIA), and cerebral infarction without residual deficits; Z88.6 Allergy status to analgesic agent; Z91.013 Allergy to seafood; Z79.899 Other long term (current) drug therapy; Z79.84 Long term (current) use of oral hypoglycemic drugs
CPT/HCPCS: 99283; J7512

== ENCOUNTER 2020-04-23 13:45 | Emergency (ER) | payer OTHER ==
[~2020-04-23] VITALS: Ht 185.4 cm; Wt 131.5 kg
--- NOTE | 2020-04-23 14:26 | NUR ---
49M PMH of HTN, HLD, DM and asthma c/o all over body rash x 2 weeks with pruritus. Pt was seen here for same rash 04/10 and also for R lower leg "psoriatic" looking area. Reports he was given antibiotics and cream, which helped. Cellulitis on r lower leg was getting better. Endorses he still has pruritus with all over body rash. States it was on his arms too, but better now. Reports dry eyes this morning but used "clear eyes". Denies fever chills cough sob cp, abdominal/urinary/bowel issues at this time. MD bedside. A&O x3, speaks in full clear sentences, follows commands. No AMU, respirations e/u. RAVI Upper body has an all over purplish rash. Anterior lateral RLE has a dry red scaley area 8x8 pending labs and further orders
[2020-04-23 14:32] LABS: BASOPHILS # (AUTO) 0.1 K/uL (0.00-0.22); BASOPHILS % (AUTO) 1.1 % (0.0-2.0); EOSINOPHILS # (AUTO) 0.3 K/uL (0-0.4); HEMATOCRIT 43.3 % (36-52); HEMOGLOBIN 14.4 g/dL (12.0-18.0); LYMPHOCYTES # (AUTO) 1.8 K/uL (2.0-11.5); LYMPHOCYTES % (AUTO) 34.5 % (20.5-51.1); MEAN CORPUSCULAR HEMOGLOBIN 30 pg (27-31); MEAN CORPUSCULAR HGB CONC 33 g/dL (33-37); MEAN CORPUSCULAR VOLUME 90.7 fL (80-94); MONOCYTES # (AUTO) 0.5 K/uL (0.8-1.0); MONOCYTES % (AUTO) 10.1 % (1.7-9.3); NEUTROPHILS # (AUTO) 2.5 K/uL (1.8-7.7); NEUTROPHILS % (AUTO) 48.3 % (42.2-75.2); PLATELET COUNT (AUTO) 221 K/uL (140-450); RED BLOOD CELL COUNT(AUTO) 4.78 MIL/uL (4.20-6.10); RED CELL DISTRIBUTION WIDTH 13.6 % (11.6-13.7); WHITE BLOOD COUNT (AUTO) 5.3 K/uL (4.8-10.8)
[2020-04-23 14:47] LABS: ALBUMIN 3.8 g/dL (3.4-5.0); BILIRUBIN,DIRECT 0.1 mg/dL (0.0-0.3); TOTAL BILIRUBIN 0.4 mg/dL (0.0-1.0)
--- NOTE | 2020-04-23 17:01 | NUR ---
Patient discharged with v/s stable. No IV present at discharge. Written and verbal after care instructions given and explained. Patient verbalized understanding. Ambulatory with steady gait. All questions addressed prior to discharge. Advised to follow up with PMD for referral to operations research analyst. Pt took all belongings with him
== END 2020-04-23 15:08 | disposition home or self-care (01) ==
LOC: MED 13:45
DX: R21 Rash and other nonspecific skin eruption (principal); L29.9 Pruritus, unspecified; J45.909 Unspecified asthma, uncomplicated; E11.9 Type 2 diabetes mellitus without complications; I10 Essential (primary) hypertension; Z86.73 Personal history of transient ischemic attack (TIA), and cerebral infarction without residual deficits; E78.00 Pure hypercholesterolemia, unspecified; Z88.6 Allergy status to analgesic agent; Z79.899 Other long term (current) drug therapy; Z79.84 Long term (current) use of oral hypoglycemic drugs
CPT/HCPCS: 36415; 80076; 85025; 99283

== ENCOUNTER 2020-07-20 14:43 | Emergency (ER) | payer OTHER ==
[~2020-07-20] VITALS: Ht 185.4 cm; Wt 144.2 kg
[2020-07-20 15:10] VITALS: BP 150/96
--- NOTE | 2020-07-20 15:24 | NUR ---
c/o hematuria x 1 day and dysuria hx HTN, DM, HYPERLIPIDEMIA,
[2020-07-20 15:39] LABS: BASOPHILS % (AUTO) 0.2 % (0.0-2.0); EOSINOPHILS # (AUTO) 0.1 K/uL (0-0.4); EOSINOPHILS % (AUTO) 1.6 % (0.0-4.0); HEMATOCRIT 42.4 % (36-52); HEMOGLOBIN 14.1 g/dL (12.0-18.0); LYMPHOCYTES # (AUTO) 1.5 K/uL (2.0-11.5); LYMPHOCYTES % (AUTO) 21.6 % (20.5-51.1); MEAN CORPUSCULAR HEMOGLOBIN 30 pg (27-31); MEAN CORPUSCULAR HGB CONC 33 g/dL (33-37); MEAN CORPUSCULAR VOLUME 91.4 fL (80-94); MONOCYTES # (AUTO) 0.4 K/uL (0.8-1.0); NEUTROPHILS # (AUTO) 4.8 K/uL (1.8-7.7); NEUTROPHILS % (AUTO) 70.6 % (42.2-75.2); PLATELET COUNT (AUTO) 226 K/uL (140-450); RED BLOOD CELL COUNT(AUTO) 4.64 MIL/uL (4.20-6.10); WHITE BLOOD COUNT (AUTO) 6.7 K/uL (4.8-10.8)
[2020-07-20 15:40] LABS: APPEARANCE,URINE HAZY (CLEAR); BILIRUBIN,URINE NEGATIVE (NEGATIVE); BLOOD, URINE 3+ (NEGATIVE); COLOR,URINE YELLOW (YELLOW); LEUKOCYTE ESTERASE ,URINE NEGATIVE (NEGATIVE); NITRITE, URINE NEGATIVE (NEGATIVE); PH,URINE 6.5 (5.0-9.0); UGLUCOSE NEGATIVE (NEGATIVE)
[2020-07-20 15:50] LABS: RBC,URINE 20-50 /HPF (0-5)
[2020-07-20 15:56] LABS: ALBUMIN 3.6 g/dL (3.4-5.0); CARBON DIOXIDE 29.9 mmol/L (21-32); CREATININE 0.9 mg/dL (0.6-1.3); POTASSIUM 3.9 mmol/L (3.5-5.1); TOTAL BILIRUBIN 0.6 mg/dL (0.0-1.0)
[2020-07-20] MEDS ORDERED: IBUP-1842 PO (16:22)
[2020-07-20] MEDS ORDERED: CEPH-588 PO (16:22)
[2020-07-20] MEDS ORDERED: TAMS0.4C96 PO (16:22)
[2020-07-20] MEDS ORDERED: PYR100 PO (16:22)
[2020-07-20] MEDS: cephALEXin 500 MG CAP PO ONE (16:25)
[2020-07-20] MEDS: PHENAZOPYRIDINE 100 MG TAB PO ONE (16:25)
[2020-07-20] MEDS ORDERED: TAMSULOSIN 0.4 MG CAP ONE (16:28)
[2020-07-20] MEDS: TAMSULOSIN 0.4 MG CAP PO SCH (16:33)
--- NOTE | 2020-07-20 16:35 | NUR ---
Patient discharged with v/s stable. Written and verbal after care instructions given and explained. Patient alert, oriented and verbalized understanding of instructions. Ambulatory with steady gait. All questions addressed prior to discharge. ID band removed. Patient advised to follow up with PMD. Rx of MOTRIN, KEFLEX, PYRIDIUM, FLOMAX given. Patient educated on indication of medication including possible reaction and side effects. Opportunity to ask questions provided and answered.
== END 2020-07-20 16:30 | disposition home or self-care (01) ==
LOC: MED 14:43
DX: N39.0 Urinary tract infection, site not specified (principal); R31.9 Hematuria, unspecified; I10 Essential (primary) hypertension; E11.9 Type 2 diabetes mellitus without complications; E78.5 Hyperlipidemia, unspecified; Z98.890 Other specified postprocedural states
CPT/HCPCS: 36415; 80053; 81001; 83690; 85025; 87086; 99284

== ENCOUNTER 2022-06-08 09:03 | Emergency (ER) | payer BC, OTHER ==
[~2022-06-08] VITALS: Ht 185.4 cm; Wt 136.1 kg
[~2022-06-08 09:03] MED LIST changes: +CEPH-588 PO; +IBUP-1842 PO; +METF-1139 PO; -METF500T2 PO; +PYR100 PO; +TAMS0.4C96 PO
[2022-06-08 09:11] VITALS: BP 155/111
--- NOTE | 2022-06-08 10:08 | NUR ---
AMBULATED TO BED 8
--- NOTE | 2022-06-08 10:20 | NUR ---
52 y/o M BIB self from home c/o left arm/shoulder pain x 3 days. Patient A&Ox4, ambulatory, reports waking up 3 days ago to pain. States 8/10, cramping/intermittent, radiating from L shoulder to L elbow; worsens with arm raises. Limited ROM of LUE. Denies medications prior to arrival. Ice pack and creams without relief. Denies trauma, falls, injuries, chest pain, SOB, abdominal pain. Bed locked in lowest position, side rails x 1. PMH: DM, HTN, HLD Meds: glipzide, losartan, hydrochlorothiazide, metformin, aspirin 81mg Allergies: diclofenac, shrimp
--- NOTE | 2022-06-08 10:50 | NUR ---
Dr. Clay evaluating patient at bedside
--- NOTE | 2022-06-08 11:02 | NUR ---
Patient to RAD via wheelchair
--- NOTE | 2022-06-08 11:11 | NUR ---
Pt returned from RAD by wheelchair
[2022-06-08 11:16] VITALS: BP 151/90
[2022-06-08] MEDS ORDERED: ACET-8905 PO (11:39)
[2022-06-08] MEDS ORDERED: IBUP-1842 PO (11:39)
--- NOTE | 2022-06-08 11:42 | NUR ---
Patient product agreement signed and pink copy given to pt. Large shoulder immobilizer applied to left upper arm. Patient instructed to adjust velcro straps as needed. Pt verbalized understanding without further questions.
--- NOTE | 2022-06-08 11:56 | NUR ---
Patient discharged with v/s stable. Written and verbal after care instructions given and explained for Shoulder Pain, Rotator Cuff Tendinitis. Patient alert, oriented and verbalized understanding of instructions. Ambulatory with steady gait. All questions addressed prior to discharge. ID band removed. Patient advised to follow up with PMD. Rx of Hydrocodone-Acetaminophen, Naproxen given. Patient educated on indication of medication including possible reaction and side effects. Opportunity to ask questions provided and answered. Off work note given to patient. Copy of RAD results given to patient.
== END 2022-06-08 11:56 | disposition home or self-care (01) ==
LOC: MED 09:03
DX: M75.22 Bicipital tendinitis, left shoulder (principal); J45.909 Unspecified asthma, uncomplicated; I10 Essential (primary) hypertension; E11.9 Type 2 diabetes mellitus without complications; Z79.4 Long term (current) use of insulin; Z79.899 Other long term (current) drug therapy; Z91.013 Allergy to seafood; Z72.89 Other problems related to lifestyle
CPT/HCPCS: 73030; 99283